=== PATIENT | female | born 1995 | race Caucasian/White ===

== ENCOUNTER 2024-05-24 21:05 | Emergency (ER) | payer OTHER, SELFPAY ==
[2024-05-24 21:06] VITALS: BMI 22.0
[2024-05-24 21:07] VITALS: BP 144/88
[2024-05-24 21:36] LABS: % Basophils 0.4 % (0-2); % Eosinophils 0.4 % (0-6); % Immature Granulocytes 0.2 % (0-0.5); % Lymphocytes 19.6 % (20.5-51.1); % Monocytes 5.8 % (1.7-9.3); % Neutrophils 73.6 % (42.2-75.2); Absolute Lymphocytes 1.8 10^3/uL (1.2-3.4); Absolute Monocytes 0.5 10^3/uL (0.1-0.6); Absolute Neutrophils 6.6 10^3/uL (1.4-6.5); Hematocrit 37.4 % (37.0-47.0); Hemoglobin 12.4 g/dL (12.0-16.0); Mean Corp Hgb Conc. 33.2 g/dL (33.0-37.0); Mean Corpuscular Hgb 27.7 pg (27.0-31.0); Mean Corpuscular Volume 83.5 fL (81.0-99.0); Mean Platelet Volume 9.4 fL (7.4-10.4); Nucleated Red Blood Cells % 0 %; Platelet Count 259 10^3/uL (130-400); Red Blood Cell Count 4.48 10^6/uL (4.20-5.40); Red Cell Dist. Width 12.7 % (11.5-14.5)
[2024-05-24 21:49] LABS: HCG, Serum Qualitative Screen Negative
[2024-05-24 21:55] LABS: ALT (SGPT) 23 U/L (0-35); AST (SGOT) 26 U/L (14-36); Acetaminophen < 10 ug/ml (10-30); Albumin 4.8 g/dl (3.5-5.0); Alkaline Phosphatase 68 U/L (38-126); Blood Urea Nitrogen 14 mg/dl (7-17); Calcium 10.3 mg/dl (8.4-10.2); Carbon Dioxide 29 mmol/L (22-30); Chloride 100 mmol/L (98-107); Estimated Creatinine Clearance 81 ml/min; Glucose 92 mg/dl (70-99); Potassium 4.4 mmol/L (3.5-5.1); Salicylate < 1.0 mg/dl (2.0-20.0); Sodium 137 mmol/L (135-145); Total Bilirubin 0.6 mg/dl (0.2-1.3); Total Protein 7.9 g/dl (6.3-8.2); eGFR > 60.00
[2024-05-24 22:02] LABS: Alcohol None Detected
--- NOTE | 2024-05-24 22:10 | ED.GENMED ---
History of Present Illness
General
Chief Complaint: Crisis Evaluation
Source: patient and police
Exam Limitations: none
Time Seen by Provider: 05/24/24 21:18
Nursing documentation reviewed up to this point in time: agreed with
History of Present Illness
History of Present Illness:
29-year-old female with history of depression and anxiety presents to the ER�brought in by police for suicidal ideation. Patient says that unfortunately her partner has been cheating on her and she discovered this tonight. This made her extremely
depressed and she said she began having thoughts of suicide and decided to go [place] and was planning to jump in an attempt to drown herself. She was found by police and brought to the ER. She denies any homicidal
ideation. She says she has had passive wish in the past but has never had plan or acted on her suicidal thoughts. She has had prior cutting behavior but not recently. She does admit to regular alcohol use but has been in AA. She says she
uses marijuana daily. Denies any other drug use. Denies physical complaints.
Past History
Social History
Tobacco: Non-smoker
Alcohol: None
Drug: None
Review of Systems
Review of Systems
All Other Systems: ROS reviewed and negative except as documented in HPI and ROS
Respiratory: Denies trouble breathing
Cardiac: Denies chest pain
ABD/GI: Denies abdominal pain
Neurological: Denies headache
Psychiatric: Reports depression, anxiety and suicidal
Phy Exam
Physical Exam
Physical Exam:
General: Awake, alert, oriented x3; no acute distress
Head: Normocephalic, atraumatic
Eyes: Conjunctiva normal, pupils equal round reactive to light bilaterally
Throat: Airway intact, handling secretions
Neck: Trachea midline, supple without meningismus
Lungs: Clear to auscultation bilaterally, no wheezing, rales, rhonchi
Heart: Regular rate and rhythm, no murmurs, gallops, or rubs
Abd: Soft, non distended, nontender
Neuro: No gross deficits
Extremities: Warm and well-perfused
Psych: Depressed mood, withdrawn affect, calm and cooperative
Scores
Heart Failure Risk
Heart Failure Risk Score: Not Applicable
Heart Score for Chest Pain Patients
STEMI patient?: Not applicable
Withdrawal Assessment of Alcohol
Withdrawal Assessment Completed?: Not applicable
Course
Orders/Labs/Results
Orders:
Orders
05/24/24 21:19
Crisis Consult Routine
Reason for Consult: 302, SI
ED Special Safety Observation ONCE
Observation level: One to Two
05/24/24 21:21
Urine Drug Abuse Screen Urgent
Test Result ONCE
05/24/24 21:28
Acetaminophen Urgent
Alcohol Urgent
Complete Blood Count/With Diff Urgent
Comprehensive Metabolic Panel Urgent
HCG, Serum Qualitative Screen Urgent
Salicylate Urgent
Abnormal Lab Results
05/24/24
21:28
Absolute Neuts (auto) 6.6 H 10^3/uL
(1.4-6.5)
Lymphocytes % 19.6 L %
(20.5-51.1)
Calcium 10.3 H mg/dl
(8.4-10.2)
Salicylates < 1.0 L mg/dl
(2.0-20.0)
Acetaminophen < 10 L ug/ml
(10-30)
05/24/24 21:28
05/24/24 21:28
Vital Signs
Initial and Last Documented VS:
Initial Vital Signs
Temp Pulse Resp BP Pulse Ox
36.4 C 95 18 144/88 100
05/24/24 21:07 05/24/24 21:07 05/24/24 21:07 05/24/24 21:07 05/24/24 21:07
Last Documented Vital Signs
Temp Pulse Resp BP Pulse Ox
36.4 C 95 18 144/88 100
05/24/24 21:07 05/24/24 21:07 05/24/24 21:07 05/24/24 21:07 05/24/24 21:07
MDM/Problems Addressed
Differential Diagnosis Includes:
Suicidal ideation
MDM/Problems Addressed:
29-year-old female presents for evaluation of suicidal ideation�plan to drown herself tonight. Vitals and exam as above. Medical screening labs reviewed CBC and CMP unremarkable, Tylenol and salicylate levels negative, alcohol level negative, hCG
negative. Medically cleared for psychiatric treatment. Patient willing to go for inpatient psychiatric treatment voluntarily but police filed back up 302. Discussed with crisis team. Will monitor on continuous observation pending placement.
*Pulse Oximetry
Patient hypoxic: no
*Critical Care Note
Total Time (30-74mins, 75-104mins- exclusive of procedures): Not Applicable
Data Reviewed
Source: patient, records and police
Patient Management
Discussion with other providers: Other (Discussed with crisis team)
Escalation/DeEscalation of care consider admission/obs:
Admission indicated�inpatient psych
ED Attending Note
-
Portions of this chart may have been created with voice recognition software.� Occasional wrong word or��sound alike� substitutions may have occurred due to the inherent limitations of voice recognition software.
Discharge Plan
Departure
Patient Disposition: Psych Facility
Date of Disposition: 05/24/24
Time of Disposition: 22:10
Discharge Problem:
Suicidal ideation
Referrals:
UNKNOWN,NO INTERVIEW [Family Provider] -
Interventions
Interventions:
*Risk Screen - Suicide Last Done: 05/24/24 21:07
*General Assessment Last Done: 05/24/24 21:07
ED-Psychological Assessment Last Done: 05/24/24 21:12
Discharge Date and Time
Print Language: ROMANIAN
[2024-05-24 23:36] LABS: Amphetamines Negative (Negative); Barbiturates Negative (Negative); Benzodiazepines Negative (Negative); Buprenorphine Negative (Negative); Cocaine Negative (Negative); Marijuana Positive (Negative); Methadone Negative (Negative); Methamphetamines Negative (Negative); Opiates Negative (Negative); Phencyclidine Negative (Negative); Tricyclic Antidepressants Negative (Negative)
== END 2024-05-25 00:53 ==
LOC: EMR 21:05
PROVIDERS: EMERGENCY PHYSICIAN Emergency Medicine
DX: R45.851 Suicidal ideations (principal); F32.A Depression, unspecified; F41.9 Anxiety disorder, unspecified; Z63.0 Problems in relationship with spouse or partner
CPT/HCPCS: 99285; 80053; 80143; 80179; 80306; 82077; 84703; 85025